=== PATIENT | female | born 1950 | race Caucasian/White ===

== ENCOUNTER → 2016-09-28 | Outpatient (REF) | payer MEDICAID ==
[2016-09-28 12:40] LABS: ALBUMIN 3.5 GM/DL (3.2-5.2); ALBUMIN/GLOBULIN RATIO 1.17 (1.00-1.93); ALKALINE PHOSPHATASE 99 U/L (45-117); ALT/SGPT 15 U/L (12-78); ANION GAP 7 MEQ/L (8-16); AST/SGOT 14 U/L (15-37); BILIRUBIN,TOTAL 0.7 MG/DL (0.2-1.0); BLOOD UREA NITROGEN 20 MG/DL (7-18); CALCIUM LEVEL 8.4 MG/DL (8.8-10.2); CARBON DIOXIDE LEVEL 31 MEQ/L (21-32); CHLORIDE LEVEL 106 MEQ/L (98-107); CHOLESTEROL LEVEL 193 MG/DL (<200); CREATININE FOR GFR 0.94 MG/DL (0.55-1.02); GLOMERULAR FILTRATION RATE > 60.0 (>45); GLUCOSE, FASTING 79 MG/DL (80-110); SODIUM LEVEL 144 MEQ/L (136-145); TOTAL PROTEIN 6.5 GM/DL (6.4-8.2); TRIGLYCERIDES LEVEL 140 MG/DL (<150)
== END | disposition home or self-care (01) ==
LOC: M SFHCPLAZ 09:08
PROVIDERS: ATTEND Family Medicine
DX: N18.3 Chronic kidney disease, stage 3 (moderate) (principal); E11.8 Type 2 diabetes mellitus with unspecified complications; N39.46 Mixed incontinence

== ENCOUNTER → 2016-10-05 | Outpatient (REF) | payer MEDICARE, MEDICAID ==
[~2016-10-05] MED LIST: ACTO30TA7 PO; ADV500INH INH; BIOT50005 SL; FLON1SPR; INCR1INH INH; K-TA10TA2 PO; LOPE2TAB3 PO; OMEP40CA2 PO; ROSU10TA2 PO; TRAZ50TA4 PO; VALA500T PO; VENL75TA2 PO; VITA-112 PO; XARE20TA PO; [UNRECOGNIZED DRUG - CODE] PO
== END | disposition home or self-care (01) ==
LOC: M SFHCPLAZ 11:51
PROVIDERS: ATTEND Family Medicine
DX: E11.8 Type 2 diabetes mellitus with unspecified complications (principal)

== ENCOUNTER → 2016-10-05 | Outpatient (CLI) | payer MEDICARE, MEDICAID ==
--- NOTE | 2016-10-09 14:15 | REPMRS ---
Patient History The patient states she has not had a clinical breast exam in over a year. Patient is postmenopausal. Family history of prostate cancer in brother. Digital Woman Screen Mammo: October 05, 2016 - Exam #: [id number] Bilateral CC and MLO view(s) were taken. Technologist: Clarissa Torres, Technologist Prior study comparison: 2013, bilateral mammogram, performed at [facility]. FINDINGS: The breast tissue is almost entirely fat. There has been no change in the appearance of the mammogram from the prior studies. There is no interval development of dominant mass, architectural distortion, or clustered microcalcification typical of malignancy. ASSESSMENT: BI-RADS/ACR category 1 mammogram. Negative. Recommendation Routine screening mammogram of both breasts in 1 year (for women over age 40). This mammogram was interpreted with the aid of an FDA-approved computer-aided dectection system. Electronically Signed By: Yosvayn Abraham MD 10/09/16 [id number]
== END | disposition home or self-care (01) ==
LOC: M WHC 12:30
PROVIDERS: ATTEND Family Medicine
DX: Z12.31 Encounter for screening mammogram for malignant neoplasm of breast (principal); Z78.0 Asymptomatic menopausal state; Z80.42 Family history of malignant neoplasm of prostate

== ENCOUNTER → 2016-11-06 | Outpatient (CLI) | payer MEDICARE, MEDICAID ==
[~2016-11-06] VITALS: Ht 171.4 cm; Wt 88.0 kg
[~2016-11-06] MED LIST changes: +NS 1,000 ML IV SCH; +PROPOFOL 200 MG/20 ML VIAL As Ordered ONE
--- NOTE | 2016-11-06 10:22 | ROOR ---
Patient Name: Leena Ballard Procedure Date: 11/06/2016 9:49 AM Date of : 1950 Age: 65 Room: [facility] Gender: Female Note Status: Finalized Procedure: Colonoscopy Indications: Screening for colorectal malignant neoplasm, High risk colon cancer surveillance: Personal history of colonic polyps Providers: Alex CINTRON MD Referring MD: Yumiko Booker MD Requesting Provider: Medicines: Monitored Anesthesia Care Complications: No immediate complications. Procedure: Pre-Anesthesia Assessment: - The heart rate, respiratory rate, oxygen saturations, blood pressure, adequacy of pulmonary ventilation, and response to care were monitored throughout the procedure. The Colonoscope was introduced through the anus and advanced to 5 cm into the ileum. The colonoscopy was performed without difficulty. The patient tolerated the procedure well. The quality of the bowel preparation was good. Findings: The perianal and digital rectal examinations were normal. Pertinent negatives include no anal lesion or abnormality was detected. The terminal ileum appeared normal. Five sessile polyps were found in the proximal ascending colon and cecum. The polyps were 4 to 12 mm in size. These polyps were removed with a piecemeal technique using a cold snare. Resection and retrieval were complete. Multiple medium-mouthed diverticula were found in the sigmoid colon. There was narrowing of the colon in association with the diverticular opening. There was evidence of diverticular spasm. Internal hemorrhoids were found during retroflexion. The hemorrhoids were moderate. The exam was otherwise without abnormality on direct and retroflexion views. (Exam: Complete, Prep: Good or Excellent.) Impression: - The examined portion of the ileum was normal. The perianal examination was normal. - Five 4 to 12 mm flat polyps in the proximal ascending colon and cecum, removed piecemeal using a cold snare. Resected and retrieved. - Mild to moderate diverticulosis in the sigmoid/descending colon. There was narrowing of the left colonand evidence of diverticular spasm. - Moderate Internal hemorrhoids. - The examination was otherwise normal on direct and retroflexion views. Recommendation: - If the pathology report reveals adenomatous tissue, then repeat the colonoscopy for surveillance in 3 years. Alex Cintron MD Alex CINTRON MD 11/06/2016 10:22:20 AM This report has been signed electronically. Number of Addenda: 0 Note Initiated On: 11/06/2016 9:49 AM Estimated Blood Loss: Estimated blood loss: none.
[2016-11-06 10:49] VITALS: BP 127/72
== END ==
LOC: M OPP 08:34
PROVIDERS: ATTEND Internal Medicine Gastroenterology
DX: Z12.11 Encounter for screening for malignant neoplasm of colon (principal); Z86.010 Personal history of colon polyps; D12.2 Benign neoplasm of ascending colon; D12.0 Benign neoplasm of cecum; K57.30 Diverticulosis of large intestine without perforation or abscess without bleeding; K64.8 Other hemorrhoids; I12.9 Hypertensive chronic kidney disease with stage 1 through stage 4 chronic kidney disease, or unspecified chronic kidney disease; N18.3 Chronic kidney disease, stage 3 (moderate); J45.909 Unspecified asthma, uncomplicated; F17.200 Nicotine dependence, unspecified, uncomplicated; E11.9 Type 2 diabetes mellitus without complications; K21.9 Gastro-esophageal reflux disease without esophagitis; K58.9 Irritable bowel syndrome, unspecified; G47.30 Sleep apnea, unspecified; H54.8 Legal blindness, as defined in USA; H35.30 Unspecified macular degeneration; H26.9 Unspecified cataract; Z86.718 Personal history of other venous thrombosis and embolism; Z98.84 Bariatric surgery status; Z96.659 Presence of unspecified artificial knee joint; Z96.619 Presence of unspecified artificial shoulder joint; Z86.73 Personal history of transient ischemic attack (TIA), and cerebral infarction without residual deficits; Z88.1 Allergy status to other antibiotic agents; Z88.0 Allergy status to penicillin; Z88.6 Allergy status to analgesic agent; Z88.8 Allergy status to other drugs, medicaments and biological substances; Z88.5 Allergy status to narcotic agent; Z79.02 Long term (current) use of antithrombotics/antiplatelets

== ENCOUNTER → 2016-11-13 | Outpatient (REF) | payer MEDICARE, MEDICAID ==
[~2016-11-13] MED LIST changes: -NS 1,000 ML IV SCH; -PROPOFOL 200 MG/20 ML VIAL As Ordered ONE
== END ==
LOC: M SMT 16:38
PROVIDERS: ATTEND Specialist
DX: N39.0 Urinary tract infection, site not specified (principal); R32 Unspecified urinary incontinence; N20.0 Calculus of kidney
CPT/HCPCS: 81001; 81002; 87086; G0463

== ENCOUNTER → 2017-02-04 | Outpatient (CLI) | payer MEDICARE, MEDICAID ==
--- NOTE | 2017-02-05 04:13 | REP ---
Clinical: Lung screening. History smoking. Comparison: none Technique: Axial low-dose noncontrast images from the thoracic inlet to the upper abdomen using lung screening technique. Findings: The lung fowler are well-aerated. No consolidation, significant nodule or mass lesion is appreciated. No pleural effusion/reaction or pneumothorax. Tracheobronchial tree is patent. Mediastinum demonstrates mild atherosclerotic changes of the coronary arteries without cardiomegaly. Impression: Lung-RADS category I. No nodule or suspicious abnormality. Management recommendations includes annual low-dose CT screening. Signed by Alton Blackburn MD 02/05/2017 04:04 A
== END ==
LOC: M RAD 10:42
PROVIDERS: ATTEND Family Medicine
DX: Z87.891 Personal history of nicotine dependence (principal)

== ENCOUNTER → 2017-04-25 | Outpatient (REF) | payer MEDICARE, MEDICAID ==
[~2017-04-25] MED LIST changes: +ACTO30TA15 PO; -ACTO30TA7 PO; +ASPI1TAB PO; +OXYB10TA PO; +TRAZ50TA11 PO; -TRAZ50TA4 PO; -VALA500T PO; +VALA500T2 PO; +[UNRECOGNIZED DRUG - CODE] PO; -[UNRECOGNIZED DRUG - CODE] PO
[2017-04-25 16:37] LABS: ANION GAP 8 MEQ/L (8-16); BLOOD UREA NITROGEN 11 MG/DL (7-18); CALCIUM LEVEL 8.2 MG/DL (8.8-10.2); CARBON DIOXIDE LEVEL 29 MEQ/L (21-32); CHLORIDE LEVEL 107 MEQ/L (98-107); CREATININE FOR GFR 0.88 MG/DL (0.55-1.02); GLOMERULAR FILTRATION RATE > 60.0 (>45); GLUCOSE, FASTING 113 MG/DL (80-110); POTASSIUM SERUM 3.7 MEQ/L (3.5-5.1); SODIUM LEVEL 144 MEQ/L (136-145)
== END ==
LOC: M SFHCPLAZ 13:49
PROVIDERS: ATTEND Family Medicine
DX: E11.8 Type 2 diabetes mellitus with unspecified complications (principal); N18.3 Chronic kidney disease, stage 3 (moderate)
CPT/HCPCS: 36415; 80048; 83036; G0463

== ENCOUNTER → 2017-07-08 | Outpatient (REF) | payer MEDICARE, MEDICAID ==
[2017-07-08 14:36] LABS: MEAN CORPUSCULAR HEMOGLOBIN 32.2 pg (27.0-33.0); MEAN CORPUSCULAR HGB CONC 32.4 g/dl (32.0-36.5); MEAN CORPUSCULAR VOLUME 99.3 fl (80.0-96.0); PLATELET COUNT, AUTOMATED 213 10^3/uL (150-450); RED CELL DISTRIBUTION WIDTH 12.7 % (11.5-14.5); WHITE BLOOD COUNT 8.5 10^3/uL (4.0-10.0)
[2017-07-08 14:52] LABS: ANION GAP 5 MEQ/L (8-16); BLOOD UREA NITROGEN 16 MG/DL (7-18); CALCIUM LEVEL 8.9 MG/DL (8.8-10.2); CARBON DIOXIDE LEVEL 31 MEQ/L (21-32); CHLORIDE LEVEL 105 MEQ/L (98-107); CREATININE FOR GFR 0.96 MG/DL (0.55-1.02); GLOMERULAR FILTRATION RATE > 60.0 (>45); GLUCOSE, FASTING 81 MG/DL (80-110); POTASSIUM SERUM 4.1 MEQ/L (3.5-5.1); SODIUM LEVEL 141 MEQ/L (136-145)
[2017-07-08 18:42] LABS: BACTERIA, URINE NONE SEEN; RBC, URINE NONE SEEN /hpf (0-3); SQUAMOUS EPITHELIAL CELL URINE SMALL AMOUNT /hpf (SMALL AMT); WBC, URINE 0-1 /hpf (0-3)
[2017-07-08 18:43] LABS: HYALINE CAST, URINE NONE SEEN /lpf (0-1); MICROSCOPIC EXAM PERFORMED
== END ==
LOC: M LABSMT 11:13
PROVIDERS: ATTEND Specialist
DX: Z01.818 Encounter for other preprocedural examination (principal); N39.46 Mixed incontinence
CPT/HCPCS: 80048; 81015; 85027; 87086; G0463

== ENCOUNTER 2017-07-12 08:36 | Day surgery (SDC) | payer MEDICARE, MEDICAID ==
[~2017-07-12] VITALS: Ht 165.1 cm; Wt 94.3 kg
[2017-07-12] MEDS ORDERED: LR 1,000 ML IV ONE (08:45)
[2017-07-12] MEDS ORDERED: PHENYLephrine HCL 500 MCG/5 ML (100MCG/ML) SYRINGE (J2370) As Ordered ONE (09:05)
[2017-07-12] MEDS ORDERED: PROPOFOL 200 MG/20 ML VIAL As Ordered ONE (09:51)
[2017-07-12] MEDS ORDERED: LIDOCAINE 2% INJ 100 MG/5 ML SDV (FOR ANES.) As Ordered ONE (09:51)
[2017-07-12] MEDS ORDERED: MIDAZOLAM INJ 2 MG/2 ML VIAL (J2250) As Ordered ONE (09:51)
[2017-07-12] MEDS ORDERED: fentaNYL 100 MCG/2 ML INJECTION (J3010) As Ordered ONE (09:52)
[2017-07-12] MEDS ORDERED: BOTULINUM INJ 100 UNITS (J0585) XX ONE (10:00)
[2017-07-12] MEDS ORDERED: BOTULINUM INJ 100 UNITS (J0585) As Ordered ONE (10:30)
[2017-07-12] MEDS: TRIMETHOPRIM/SULFAMETHOXAZOLE 160 MG in D5W 250 ML IV ONE ×2 (10:36→10:46)
[2017-07-12] MEDS ORDERED: fentaNYL 100 MCG/2 ML INJECTION (J3010) IV PRN (11:30)
[2017-07-12] MEDS ORDERED: METOCLOPRAMIDE INJ 10MG/2ML VIAL (J2765) IV PRN (11:30)
[2017-07-12] MEDS ORDERED: LR 1,000 ML IV SCH (11:30)
[2017-07-12] MEDS ORDERED: MEPERIDINE INJ 25 MG/ML VIAL (J2175) IV PRN (11:30)
[2017-07-12] MEDS ORDERED: PERCOCET 5MG/325MG TAB PO PRN (11:30)
[2017-07-12] MEDS ORDERED: ONDANSETRON 4MG/2ML VIAL (J2405) IV PRN (11:30)
[2017-07-12 12:30] VITALS: BP 182/74
--- NOTE | 2017-07-14 07:17 | RO ---
DATE OF PROCEDURE: 07/12/2017 PREOPERATIVE DIAGNOSIS: Mixed urinary incontinence with significant urinary urgency and urge incontinence causing her to wear diapers despite medical management. Urodynamic studies showed hypersensation. PROCEDURE: Cystoscopy, Hydrodistention, Bladder Biopsies, and Intravesicle Botox SURGEON: Sachi Catalan MD [employer] LAYER: Vineet ANESTHESIA: Monitored anesthesia care (MAC). After discussing all different options, alternatives, risks, and benefits, it was decided to bring the patient to the operating room for the above procedure. Informed consent was obtained in both verbal and written form. We particularly discussed the risks of urinary retention after intravesical Botox requiring either Castañeda catheterization or clean intermittent catheterization for up to a year after the procedure. The patient still wanted to continue. PROCEDURE: The patient was brought into the operating room, preoperative antibiotics had been given with Bactrim DS, and sequential compression devices were in place. MAC anesthesia was induced and the patient was then placed in the lithotomy position. Careful attention was paid that her pressure points were well padded and protected. Next, she was prepped and draped in the usual fashion. Next, a 21-Bulgarian cystoscope was inserted. The urethra was noted to be open without any evidence of lesions or strictures. Upon entering the bladder, both ureteral orifices were seen. There was no evidence of stones, erythematous patches, lesions, or other abnormalities. Using normal saline, the bladder was then distended under gravity drainage. After 700 mL, the water output was stopped and this was left distended for 10 minutes. Upon emptying the bladder, there was some hyperemia and a rare glomerulations lesion. There was trabeculation during the filling phase. At this point, 100 units of Botox had been mixed with 10 mL of injectable saline. Using an 3 mm needle, the Botox was injected into 10 different places around the bladder with 10 units of Botox each. Next, the water source was changed to sterile water and random bladder biopsies were taken. Any areas that were bleeding were then fulgurated. The patient's bladder was emptied and she was returned to the recovery room in stable condition. NIRMALA
== END 2017-07-12 12:45 | disposition home or self-care (01) ==
LOC: M SDC 08:36
PROVIDERS: ATTEND Specialist
DX: N39.46 Mixed incontinence (principal); N31.0 Uninhibited neuropathic bladder, not elsewhere classified; N32.81 Overactive bladder; I12.9 Hypertensive chronic kidney disease with stage 1 through stage 4 chronic kidney disease, or unspecified chronic kidney disease; E78.00 Pure hypercholesterolemia, unspecified; E11.311 Type 2 diabetes mellitus with unspecified diabetic retinopathy with macular edema; E11.40 Type 2 diabetes mellitus with diabetic neuropathy, unspecified; K57.32 Diverticulitis of large intestine without perforation or abscess without bleeding; K21.9 Gastro-esophageal reflux disease without esophagitis; A63.0 Anogenital (venereal) warts; M12.9 Arthropathy, unspecified; R29.898 Other symptoms and signs involving the musculoskeletal system; G43.909 Migraine, unspecified, not intractable, without status migrainosus; F41.0 Panic disorder [episodic paroxysmal anxiety]; F32.9 Major depressive disorder, single episode, unspecified; J45.909 Unspecified asthma, uncomplicated; J44.9 Chronic obstructive pulmonary disease, unspecified; R06.83 Snoring; R06.02 Shortness of breath; G47.33 Obstructive sleep apnea (adult) (pediatric); N18.3 Chronic kidney disease, stage 3 (moderate); E55.9 Vitamin D deficiency, unspecified; J30.9 Allergic rhinitis, unspecified; Z88.0 Allergy status to penicillin; Z88.1 Allergy status to other antibiotic agents; Z88.4 Allergy status to anesthetic agent; Z88.6 Allergy status to analgesic agent; Z88.8 Allergy status to other drugs, medicaments and biological substances; Z79.899 Other long term (current) drug therapy; Z79.82 Long term (current) use of aspirin; Z86.718 Personal history of other venous thrombosis and embolism; Z87.81 Personal history of (healed) traumatic fracture; Z86.73 Personal history of transient ischemic attack (TIA), and cerebral infarction without residual deficits; Z98.51 Tubal ligation status; Z96.651 Presence of right artificial knee joint; Z98.84 Bariatric surgery status; Z72.0 Tobacco use
CPT/HCPCS: 36415; 52204; 52287; 86850; 86900; 86901; 88305; J0585; J2250; J3010

== ENCOUNTER → 2017-11-05 | Outpatient (REF) | payer MEDICARE, MEDICAID ==
[2017-11-05 11:19] LABS: ANION GAP 8 MEQ/L (8-16); BLOOD UREA NITROGEN 13 MG/DL (7-18); CALCIUM LEVEL 8.5 MG/DL (8.8-10.2); CARBON DIOXIDE LEVEL 31 MEQ/L (21-32); CHLORIDE LEVEL 105 MEQ/L (98-107); CREATININE FOR GFR 0.89 MG/DL (0.55-1.30); GLOMERULAR FILTRATION RATE > 60.0 (>45); GLUCOSE, FASTING 102 MG/DL (70-100); POTASSIUM SERUM 3.8 MEQ/L (3.5-5.1); SODIUM LEVEL 144 MEQ/L (136-145)
[2017-11-05 11:29] LABS: ESTIMATED AVERAGE GLUCOSE 131 MG/DL (60-110); HEMOGLOBIN A1c 6.2 %
== END ==
LOC: M SFHCPLAZ 09:48
DX: E11.22 Type 2 diabetes mellitus with diabetic chronic kidney disease (principal); N18.3 Chronic kidney disease, stage 3 (moderate)
CPT/HCPCS: 83036

== ENCOUNTER → 2017-12-03 | Outpatient (CLI) | payer MEDICARE, MEDICAID | LOC: M WHC 10:06 | DX: Z12.31 Encounter for screening mammogram for malignant neoplasm of breast (principal); Z78.0 Asymptomatic menopausal state | CPT/HCPCS: 77067 ==

== ENCOUNTER → 2018-01-16 | Outpatient (REF) | payer MEDICARE, MEDICAID ==
[2018-01-16 19:46] LABS: BACTERIA, URINE AUTO 1+ (NEGATIVE); MUCUS, URINE SMALL (NEGATIVE); RBC, URINE AUTO 4 /HPF (0-3); SQUAMOUS EPITHELIAL CELL UR AU 1 /HPF (0-6); WBC, URINE AUTO 2 /HPF (0-3)
== END ==
LOC: M SMT 17:18
DX: N18.3 Chronic kidney disease, stage 3 (moderate) (principal); N39.46 Mixed incontinence
CPT/HCPCS: 81015

== ENCOUNTER → 2018-03-21 | Outpatient (CLI) | payer MEDICARE, MEDICAID | LOC: M WHC 09:44 | DX: M81.0 Age-related osteoporosis without current pathological fracture (principal) | CPT/HCPCS: 77080 ==

== ENCOUNTER → 2018-04-16 | Outpatient (REF) | payer MEDICARE, MEDICAID ==
[2018-04-16 12:15] LABS: VITAMIN B12 LEVEL 273 PG/ML (247-911)
[2018-04-16 12:42] LABS: ANION GAP 8 MEQ/L (8-16); BLOOD UREA NITROGEN 14 MG/DL (7-18); CALCIUM LEVEL 8.6 MG/DL (8.8-10.2); CARBON DIOXIDE LEVEL 30 MEQ/L (21-32); CHLORIDE LEVEL 105 MEQ/L (98-107); CREATININE FOR GFR 0.96 MG/DL (0.55-1.30); GLOMERULAR FILTRATION RATE > 60.0 (>45); GLUCOSE, FASTING 158 MG/DL (70-100); MAGNESIUM LEVEL 2.4 MG/DL (1.8-2.4); POTASSIUM SERUM 4.2 MEQ/L (3.5-5.1); SODIUM LEVEL 143 MEQ/L (136-145)
[2018-04-16 13:11] LABS: MALB URINE SIEMENS 18.2 MG/L; MAU/CREAT RATIO 13.8 MCG/MG (0.0-30.0)
[2018-04-16 13:49] LABS: ESTIMATED AVERAGE GLUCOSE 157 MG/DL (60-110); HEMOGLOBIN A1c 7.1 %
== END ==
LOC: M SFHCPLAZ 08:27
DX: E11.8 Type 2 diabetes mellitus with unspecified complications (principal); N18.3 Chronic kidney disease, stage 3 (moderate); R20.2 Paresthesia of skin
CPT/HCPCS: 83735

== ENCOUNTER → 2018-06-11 | Outpatient (CLI) | payer MEDICARE, MEDICAID, OTHER ==
[2018-06-11 17:10] LABS: ANION GAP 8 MEQ/L (8-16); BLOOD UREA NITROGEN 23 MG/DL (7-18); CALCIUM LEVEL 8.3 MG/DL (8.8-10.2); CARBON DIOXIDE LEVEL 29 MEQ/L (21-32); CHLORIDE LEVEL 105 MEQ/L (98-107); CREATININE FOR GFR 1.22 MG/DL (0.55-1.30); GLOMERULAR FILTRATION RATE 46.8 (>45); GLUCOSE, FASTING 183 MG/DL (70-100); NT-PRO BNP 701 PG/ML (<125); POTASSIUM SERUM 3.7 MEQ/L (3.5-5.1); SODIUM LEVEL 142 MEQ/L (136-145)
[2018-06-11 17:28] LABS: BASO % 0.3 % (0.0-1.0); EOS # 0.1 10^3/uL (0.0-0.50); EOS % 0.7 % (0.0-3.0); HEMATOCRIT 40.8 % (36.0-47.0); HEMOGLOBIN 13.4 g/dl (12.0-15.5); IMMATURE GRANULOCYTE % 1.1 % (0-3.0); LYMPH # 3.3 10^3/uL (1.5-4.5); LYMPH % 24.7 % (24.0-44.0); MEAN CORPUSCULAR HEMOGLOBIN 31.5 pg (27.0-33.0); MEAN CORPUSCULAR HGB CONC 32.8 g/dl (32.0-36.5); MONO # 0.7 10^3/uL (0.0-0.8); MONO % 4.9 % (0.0-5.0); NEUTROPHILS # 9.2 10^3/uL (1.8-7.7); NEUTROPHILS % 68.3 % (36.0-66.0); PLATELET COUNT, AUTOMATED 214 10^3/uL (150-450); RED BLOOD COUNT 4.25 10^6/uL (4.00-5.40); RED CELL DISTRIBUTION WIDTH 13.4 % (11.5-14.5); WHITE BLOOD COUNT 13.4 10^3/uL (4.0-10.0)
== END ==
LOC: M LAB 16:03
DX: Z01.818 Encounter for other preprocedural examination (principal); R05 Cough
CPT/HCPCS: 71046

== ENCOUNTER 2018-08-18 12:46 | Day surgery (SDC) | payer MEDICARE, MEDICAID ==
[~2018-08-18] VITALS: Ht 170.2 cm; Wt 108.9 kg
[~2018-08-18 12:46] MED LIST changes: +ALKATAB21 PO; +BIOT50005 PO; -BIOT50005 SL; +IMOD2TAB16 PO; +NS 1,000 ML IV ONE; -ROSU10TA2 PO; +ROSU10TA5 PO; +TRAZ-160 PO; -TRAZ50TA11 PO; -VALA500T2 PO; +VALA500T4 PO
[2018-08-18] MEDS ORDERED: LIDOCAINE 2% INJ 100 MG/5 ML SDV (FOR ANES.) As Ordered ONE (14:37)
[2018-08-18] MEDS ORDERED: fentaNYL 100 MCG/2 ML INJECTION (J3010) As Ordered ONE (14:37)
[2018-08-18] MEDS ORDERED: PROPOFOL 200 MG/20 ML VIAL As Ordered ONE (14:37)
--- NOTE | 2018-08-18 14:53 | ROOR ---
Patient Name: Leena Ballard Procedure Date: 08/18/2018 2:22 PM Date of : 1950 Age: 67 Room: [facility] Gender: Female Note Status: Finalized Procedure: Upper GI endoscopy Indications: Heartburn Providers: Alex CINTRON MD Referring MD: Yumiko Booker MD Requesting Provider: Medicines: Monitored Anesthesia Care Complications: No immediate complications. Procedure: Pre-Anesthesia Assessment: - The heart rate, respiratory rate, oxygen saturations, blood pressure, adequacy of pulmonary ventilation, and response to care were monitored throughout the procedure. The Endoscope was introduced through the mouth, and advanced to the third part of duodenum. The upper GI endoscopy was accomplished without difficulty. The patient tolerated the procedure well. Findings: The examined esophagus was normal. Evidence of a gastric bypass was found. (I suspect this was originally a vertical banded gastropexy, however the staple line fistulized and reopened into the remaining stomach). The exam of the stomach was otherwise normal. The examined duodenum was normal. Bilious fluid was found in the stomach. Impression: - Normal esophagus. 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 - Bilious gastric fluid. - Normal examined duodenum. - No specimens collected. Recommendation: - Continue present medications. - Consideration may be given to a trial on sucralfate for bilious gastric fluid/bile reflux. - Observe patient's clinical course. Alex Cintron MD Alex CINTRON MD 08/18/2018 2:53:11 PM This report has been signed electronically. Number of Addenda: 0 Note Initiated On: 08/18/2018 2:22 PM Estimated Blood Loss: Estimated blood loss: none.
[2018-08-18 15:05] VITALS: BP 200/91
== END 2018-08-18 15:27 | disposition home or self-care (01) ==
LOC: M OPP 12:46
PROVIDERS: ATTEND Internal Medicine Gastroenterology
DX: R12 Heartburn (principal); Z98.84 Bariatric surgery status
CPT/HCPCS: 43235; J3010

== ENCOUNTER → 2018-09-23 | Outpatient (REF) | payer MEDICARE, MEDICAID ==
[~2018-09-23] MED LIST changes: -NS 1,000 ML IV ONE; -VALA500T4 PO; +VALA500T5 PO
[2018-09-23 15:52] LABS: CALCIUM LEVEL 8.5 MG/DL (8.8-10.2); CREATININE FOR GFR 1.06 MG/DL (0.55-1.30); POTASSIUM SERUM 3.9 MEQ/L (3.5-5.1)
[2018-09-23 16:03] LABS: TOTAL 25(OH) VITAMIN D 34.3 NG/ML (30.0-100.0)
[2018-09-23 16:29] LABS: HEMOGLOBIN A1c 8.7 %
== END ==
LOC: M SFHCPLAZ 12:22
PROVIDERS: ATTEND Family Medicine
DX: E11.8 Type 2 diabetes mellitus with unspecified complications (principal); N18.3 Chronic kidney disease, stage 3 (moderate); M81.0 Age-related osteoporosis without current pathological fracture; N30.01 Acute cystitis with hematuria

== ENCOUNTER → 2018-10-10 | Outpatient (CLI) | payer MEDICARE, MEDICAID ==
--- NOTE | 2018-10-10 15:00 | REP ---
LOW-DOSE LUNG SCREENING CT: 10/10/2018. Comparison: CT 02/04/2017, chest x-ray 06/11/2018. Clinical history: Personal smoking history, history of nicotine dependence. Technique: Thin section low dose lung screening CT protocol performed. Only lung windows are presented per that protocol. Findings: There is a 2 mm calcified granuloma on image 43 in the right lower lobe superior segment. There is no pleural based mass, pleural thickening, noncalcified nodule or parenchymal mass. No apical scar or pneumothorax. I see no definite effusion. Mediastinal contour grossly unremarkable. Heart not enlarged. Impression: 1. Lung RADS category 1, negative. No nodule or suspicious abnormality. A calcified granuloma is seen in the superior segment of the right lower lobe, unchanged. Patients with this category of examination have less than 1% chance of malignancy at the time of the study. Recommend followup lung screening CT in 1 year. Electronically Signed by Sean Iglesias MD 10/10/2018 05:51 P
== END ==
LOC: M RAD 12:50
PROVIDERS: ATTEND Family Medicine
DX: Z12.2 Encounter for screening for malignant neoplasm of respiratory organs (principal); Z87.891 Personal history of nicotine dependence

== ENCOUNTER → 2018-10-23 | Outpatient (REF) | payer MEDICARE, MEDICAID | LOC: M SFHCPLAZ 08:36 | PROVIDERS: ATTEND Family Medicine | DX: E83.51 Hypocalcemia (principal) ==

== ENCOUNTER 2018-11-04 10:07 | Outpatient (CLI) | payer MEDICARE, MEDICAID ==
[~2018-11-04] VITALS: Ht 170.2 cm; Wt 109.3 kg
[2018-11-04 10:15] VITALS: BP 158/88
[2018-11-04] MEDS ORDERED: ZOLEDRONIC ACID 5 MG in APPROPRIATE DILUENT 1 EA IV ONE (10:30)
[2018-11-04 11:29] VITALS: BP 158/78
== END 2018-11-04 11:30 | disposition home or self-care (01) ==
LOC: M INFU 10:07
PROVIDERS: ATTEND Family Medicine
DX: M81.0 Age-related osteoporosis without current pathological fracture (principal); Z88.0 Allergy status to penicillin; Z88.1 Allergy status to other antibiotic agents; Z88.8 Allergy status to other drugs, medicaments and biological substances
CPT/HCPCS: 96365; J3489

== ENCOUNTER → 2018-12-02 | Outpatient (REF) | payer MEDICARE, MEDICAID ==
[~2018-12-02] MED LIST changes: -ASPI1TAB PO; +ASPI81TA26 PO
[2018-12-02 12:03] LABS: BLOOD UREA NITROGEN 12 MG/DL (7-18); CALCIUM LEVEL 8.9 MG/DL (8.8-10.2); CARBON DIOXIDE LEVEL 31 MEQ/L (21-32); CHLORIDE LEVEL 102 MEQ/L (98-107); CREATININE FOR GFR 0.97 MG/DL (0.55-1.30); GLOMERULAR FILTRATION RATE > 60.0 (>45); GLUCOSE, FASTING 227 MG/DL (70-100); POTASSIUM SERUM 3.6 MEQ/L (3.5-5.1); SODIUM LEVEL 140 MEQ/L (136-145)
== END ==
LOC: M SFHCPLAZ 08:03
PROVIDERS: ATTEND Family Medicine
DX: R51 Headache (principal)
CPT/HCPCS: 36415; 80048; G0463

== ENCOUNTER → 2019-01-09 | Outpatient (REF) | payer MEDICARE, MEDICAID ==
[2019-01-09 12:33] LABS: HEMOGLOBIN A1c 8.1 %
== END ==
LOC: M SFHCPLAZ 08:26
PROVIDERS: ATTEND Family Medicine
DX: E11.8 Type 2 diabetes mellitus with unspecified complications (principal)

== ENCOUNTER → 2019-04-10 | Outpatient (REF) | payer MEDICARE, MEDICAID ==
[~2019-04-10] MED LIST changes: -OXYB10TA PO; +OXYB10TA2 PO; -ROSU10TA5 PO; +ROSU10TA6 PO; -TRAZ-160 PO; +TRAZ-252 PO
[2019-04-10 12:39] LABS: HEMOGLOBIN A1c 7.3 %
[2019-04-10 12:46] LABS: CALCIUM LEVEL 9.3 MG/DL (8.8-10.2); CREATININE FOR GFR 1.01 MG/DL (0.55-1.30); POTASSIUM SERUM 4.5 MEQ/L (3.5-5.1)
[2019-04-10 13:20] LABS: MALB URINE SIEMENS 8.3 MG/L; MAU/CREAT RATIO 25.1 MCG/MG (0.0-30.0)
== END ==
LOC: M SFHCPLAZ 08:44
PROVIDERS: ATTEND Family Medicine
DX: E11.8 Type 2 diabetes mellitus with unspecified complications (principal); N18.3 Chronic kidney disease, stage 3 (moderate)

== ENCOUNTER → 2019-07-17 | Outpatient (REF) | payer MEDICARE, MEDICAID ==
[~2019-07-17] MED LIST changes: -OMEP40CA2 PO; +OMEP40CA97 PO
[2019-07-17 11:54] LABS: BLOOD UREA NITROGEN 14 MG/DL (7-18); CALCIUM LEVEL 8.5 MG/DL (8.8-10.2); CARBON DIOXIDE LEVEL 34 MEQ/L (21-32); CHLORIDE LEVEL 103 MEQ/L (98-107); CREATININE FOR GFR 0.91 MG/DL (0.55-1.30); GLOMERULAR FILTRATION RATE > 60.0 (>45); GLUCOSE, FASTING 112 MG/DL (70-100); POTASSIUM SERUM 3.6 MEQ/L (3.5-5.1); SODIUM LEVEL 143 MEQ/L (136-145)
[2019-07-17 12:10] LABS: HEMOGLOBIN A1c 6.8 %
== END ==
LOC: M SFHCPLAZ 08:36
PROVIDERS: ATTEND Family Medicine
DX: E11.8 Type 2 diabetes mellitus with unspecified complications (principal); N18.3 Chronic kidney disease, stage 3 (moderate)
CPT/HCPCS: 36415; 80048; 83036; G0463

== ENCOUNTER → 2019-08-10 | Outpatient (CLI) | payer MEDICARE, MEDICAID ==
--- NOTE | 2019-08-10 15:26 | REP ---
Bilateral lower extremity Duplex Doppler venous ultrasound: Real time compression and duplex Doppler interrogation of the bilateral lower extremity deep venous system is performed. Bilaterally, the common femoral, superficial femoral and popliteal veins are fully compressible with transducer pressure and demonstrate normal spontaneous and phasic flow, without evidence of deep venous thrombosis. Impression: No evidence of deep venous thrombosis of the bilateral lower extremity femoral popliteal venous system. Electronically Signed by David Gilliland MD 08/10/2019 03:17 P
== END ==
LOC: M RAD 13:41
PROVIDERS: ATTEND Physician Assistant
DX: I83.813 Varicose veins of bilateral lower extremities with pain (principal)

== ENCOUNTER → 2019-09-04 | Outpatient (CLI) | payer MEDICARE, MEDICAID ==
--- NOTE | 2019-09-04 14:10 | REPPI ---
Clinical: Change in bowel habits. Technique: Single supine view of the abdomen and pelvis. Findings: Bowel gas pattern is nonspecific. No obvious organomegaly. No significant abnormal calcifications. Skeletal structures demonstrate age-related changes. Impression: Nonspecific bowel gas pattern. Electronically Signed by Alton Blackburn MD 09/04/2019 02:01 P
== END ==
LOC: M PLALAB 13:38 → M PLAIMG 13:38
PROVIDERS: ATTEND Family Medicine
DX: R19.5 Other fecal abnormalities (principal)

== ENCOUNTER → 2019-09-21 | Outpatient (REF) | payer MEDICARE, MEDICAID ==
[~2019-09-21] MED LIST changes: -OXYB10TA2 PO; +OXYB10TA23 PO
[2019-09-21 17:44] LABS: APPEARANCE, URINE HAZY (CLEAR); BACTERIA, URINE AUTO NEGATIVE (NEGATIVE); BILIRUBIN, URINE AUTO NEGATIVE (NEGATIVE); BLOOD, URINE BLOOD NEGATIVE (NEGATIVE); COLOR, URINE YELLOW (YELLOW); GLUCOSE, URINE (UA) AUTO NEGATIVE (NEGATIVE); KETONE, URINE AUTO NEGATIVE (NEGATIVE); LEUKOCYTE ESTERASE, URINE AUTO 2+ (NEGATIVE); MUCUS, URINE SMALL (NEGATIVE); NITRITE, URINE AUTO NEGATIVE (NEGATIVE); PROTEIN, URINE AUTO NEGATIVE (NEGATIVE); RBC, URINE AUTO 2 /HPF (0-3); SPECIFIC GRAVITY URINE AUTO 1.005 (1.002-1.035); SQUAMOUS EPITHELIAL CELL UR AU 0 /HPF (0-6); UROBILINOGEN, URINE AUTO 0.2 mg/dL (0.0-2.0); WBC, URINE AUTO 13 /HPF (0-3)
== END ==
LOC: M LAB REF 16:27
PROVIDERS: ATTEND Nurse Practitioner Women's Health
DX: N39.41 Urge incontinence (principal)

== ENCOUNTER → 2020-01-19 | Outpatient (REF) | payer MEDICARE, MEDICAID ==
[~2020-01-19] MED LIST changes: +D31000TA2 PO; +LOPE2CAP PO; +TRUL0.5I SC; +[UNRECOGNIZED DRUG - OTHER] PO
[2020-01-19 12:14] LABS: HEMOGLOBIN A1c 6.4 %
[2020-01-19 13:02] LABS: CALCIUM LEVEL 9.5 MG/DL (8.8-10.2); CHOLESTEROL RISK RATIO 3.454 (<5); CREATININE FOR GFR 1.1 MG/DL (0.55-1.30); GLOMERULAR FILTRATION RATE 52.4 (>45); POTASSIUM SERUM 4.4 MEQ/L (3.5-5.1); TOTAL 25(OH) VITAMIN D 42.4 NG/ML (30.0-100.0)
== END ==
LOC: M SFHCPLAZ 08:41
PROVIDERS: ATTEND Family Medicine
DX: E11.8 Type 2 diabetes mellitus with unspecified complications (principal); E78.5 Hyperlipidemia, unspecified; N18.3 Chronic kidney disease, stage 3 (moderate); E55.9 Vitamin D deficiency, unspecified
CPT/HCPCS: 36415; 80048; 80061; 82306; 83036; G0463

== ENCOUNTER 2020-02-03 13:30 | Outpatient (CLI) | payer MEDICARE, MEDICAID ==
[~2020-02-03] VITALS: Ht 167.6 cm; Wt 97.7 kg
[~2020-02-03 13:30] MED LIST changes: -D31000TA2 PO; -LOPE2CAP PO; -TRUL0.5I SC; -[UNRECOGNIZED DRUG - OTHER] PO
[2020-02-03 13:40] VITALS: BP 144/63
[2020-02-03] MEDS ORDERED: ZOLEDRONIC ACID 5 MG in IV 1 EA IV ONE (13:45)
[2020-02-03 14:56] VITALS: BP 125/66
[2020-02-10] MEDS ORDERED: LOPE2CAP PO (13:25)
[2020-02-10] MEDS ORDERED: VITAD1000T PO (13:25)
[2020-02-10] MEDS ORDERED: [UNRECOGNIZED DRUG - OTHER] PO (13:25)
[2020-02-10] MEDS ORDERED: TRUL0.5I SC (13:31)
== END 2020-02-03 15:00 | disposition home or self-care (01) ==
LOC: M INFU 13:30
PROVIDERS: ATTEND Family Medicine
DX: M81.0 Age-related osteoporosis without current pathological fracture (principal)
CPT/HCPCS: 96365; J3489

== ENCOUNTER → 2020-02-09 | Outpatient (CLI) | payer MEDICARE, MEDICAID ==
[~2020-02-09] MED LIST changes: +LOPE2CAP PO; +TRUL0.5I SC; +VITAD1000T PO; +[UNRECOGNIZED DRUG - OTHER] PO
== END ==
LOC: M LABSMTC 12:03
PROVIDERS: ATTEND Anesthesiology
DX: Z03.818 Encounter for observation for suspected exposure to other biological agents ruled out (principal); Z11.59 Encounter for screening for other viral diseases
CPT/HCPCS: C9803; U0003

== ENCOUNTER 2020-02-12 07:09 | Day surgery (SDC) | payer MEDICARE, MEDICAID ==
[~2020-02-12] VITALS: Ht 167.6 cm; Wt 93.9 kg
[~2020-02-12 07:09] MED LIST changes: +NS 1,000 ML IV ONE
[2020-02-12] MEDS ORDERED: propofoL 200 MG/20 ML VIAL As Ordered ONE ×2 (08:57→09:15)
[2020-02-12] MEDS ORDERED: LIDOCAINE 2% 100MG/5ML SDV (FOR ANES.) As Ordered ONE (08:57)
--- NOTE | 2020-02-12 09:22 | ROOR ---
Patient Name: Leena Ballard Procedure Date: 02/12/2020 8:41 AM Date of : 1950 Age: 69 Room: [facility] Gender: Female Note Status: Finalized Procedure: Colonoscopy Indications: Change in bowel habits Providers: Alex CINTRON MD Referring MD: Yumiko Booker MD Requesting Provider: Medicines: Monitored Anesthesia Care Complications: No immediate complications. Procedure: Pre-Anesthesia Assessment: - The heart rate, respiratory rate, oxygen saturations, blood pressure, adequacy of pulmonary ventilation, and response to care were monitored throughout the procedure. The Colonoscope was introduced through the anus and advanced to the cecum, identified by appendiceal orifice and ileocecal valve. The colonoscopy was somewhat difficult due to multiple diverticula in the colon and unsatisfactory bowel prep. Successful completion of the procedure was aided by using manual pressure and lavage. The patient tolerated the procedure well. The quality of the bowel preparation was unsatisfactory, required extensive lavage. Overall prep remains subioptimal after lavage. Findings: The perianal and digital rectal examinations were normal. A 7 mm polyp was found in the cecum. The polyp was sessile. The polyp was removed with a cold snare. Resection and retrieval were complete. To prevent bleeding after the polypectomy, one hemostatic clip was successfully placed. There was no bleeding at the end of the procedure. Multiple small and large-mouthed diverticula were found in the sigmoid colon and descending colon. There was narrowing of the colon in association with the diverticular opening. Internal hemorrhoids were found during retroflexion. The hemorrhoids were moderate. Impression: - Preparation of the colon was suboptimal. - One 7 mm polyp in the cecum, removed with a cold snare. Resected and retrieved. Clip was placed. - Moderate to severe diverticulosis in the sigmoid colon and in the descending colon. There was spasm and narrowing of the colon in association with the diverticular opening. - Internal hemorrhoids. Recommendation: - Repeat colonoscopy in 1 year because the bowel preparation was suboptimal. - (Rec alternate colon preparation for next colonoscopy) - Continue present medications. Alex Cintron MD Alex CINTRON MD 02/12/2020 9:21:44 AM Electronically signed by Alex CINTRON MD Number of Addenda: 0 Note Initiated On: 02/12/2020 8:41 AM Estimated Blood Loss: Estimated blood loss: none.
[2020-02-12 09:40] VITALS: BP 144/70
[2020-02-12] MEDS ORDERED: ONDANSETRON 4MG/2ML VIAL As Ordered ONE (09:47)
[2020-02-12] MEDS ORDERED: ONDANSETRON 4MG/2ML VIAL IV ONE (10:00)
== END 2020-02-12 09:45 | disposition home or self-care (01) ==
LOC: M OPP 07:09
PROVIDERS: ATTEND Internal Medicine Gastroenterology
DX: R19.4 Change in bowel habit (principal); K63.5 Polyp of colon; K64.8 Other hemorrhoids; K57.30 Diverticulosis of large intestine without perforation or abscess without bleeding; E11.9 Type 2 diabetes mellitus without complications; Z79.899 Other long term (current) drug therapy; Z88.0 Allergy status to penicillin; Z88.1 Allergy status to other antibiotic agents; Z88.2 Allergy status to sulfonamides; Z87.891 Personal history of nicotine dependence
CPT/HCPCS: 45385; 88305; J2405

== ENCOUNTER → 2020-02-17 | Outpatient (CLI) | payer MEDICARE, MEDICAID ==
[~2020-02-17] MED LIST changes: -NS 1,000 ML IV ONE
--- NOTE | 2020-02-17 11:18 | REP ---
CT CHEST WITHOUT CONTRAST: LOW-DOSE SCREENING EXAM. HISTORY: Nicotine dependence. Comparison is made with prior studies dated October 10, 2018 and February 04, 2017. CT FINDINGS: There is a stable calcified tiny granuloma in the superior segment of the right lower lobe, unchanged. No new pulmonary nodule or mass lesion is visible. There is some linear fibrotic change in the lingula as before and in the right middle lobe, unchanged. There are sutures in the left upper quadrant of the abdomen post gastric bypass. Study is otherwise unremarkable. There is some vascular calcification. IMPRESSION: Stable Lung-RADS category 1 findings. Repeat screening study suggested in 1 year. Electronically Signed by Joe Abraham MD 02/17/2020 05:12 P
== END ==
LOC: M RAD 08:02
PROVIDERS: ATTEND Family Medicine
DX: Z12.2 Encounter for screening for malignant neoplasm of respiratory organs (principal); F17.211 Nicotine dependence, cigarettes, in remission

== ENCOUNTER → 2020-09-19 | Outpatient (REF) | payer MEDICARE, MEDICAID ==
[~2020-09-19] MED LIST changes: +D31000TA2 PO; -VITAD1000T PO
[2020-09-19 13:19] LABS: ALBUMIN 3.3 GM/DL (3.2-5.2); ALT/SGPT 14 U/L (12-78); BILIRUBIN,TOTAL 0.6 MG/DL (0.2-1.0); BLOOD UREA NITROGEN 7 MG/DL (7-18); CALCIUM LEVEL 8.8 MG/DL (8.8-10.2); CARBON DIOXIDE LEVEL 34 MEQ/L (21-32); CHLORIDE LEVEL 100 MEQ/L (98-107); CHOLESTEROL LEVEL 175 MG/DL (<200); CHOLESTEROL RISK RATIO 4.487 (<5); CREATININE FOR GFR 0.97 MG/DL (0.55-1.30); GLOMERULAR FILTRATION RATE > 60.0 (>45); GLUCOSE, FASTING 118 MG/DL (70-100); HDL CHOLESTEROL 39 MG/DL (>40); LDL CHOLESTEROL 104 MG/DL (<100); NON-HDL-C 136 MG/DL; POTASSIUM SERUM 3.5 MEQ/L (3.5-5.1); SODIUM LEVEL 141 MEQ/L (136-145); TOTAL PROTEIN 6.7 GM/DL (6.4-8.2); TRIGLYCERIDES LEVEL 160 MG/DL (<150)
[2020-09-19 14:36] LABS: HEMOGLOBIN A1c 6.2 %
== END ==
LOC: M SFHCADAM 09:16
PROVIDERS: ATTEND Physician Assistant
DX: N18.30 Chronic kidney disease, stage 3 unspecified (principal); E11.8 Type 2 diabetes mellitus with unspecified complications; E78.5 Hyperlipidemia, unspecified
CPT/HCPCS: 80053; 80061; 83036; G0463

== ENCOUNTER 2021-11-06 18:51 | Emergency (ER) | payer MEDICARE, OTHER ==
[~2021-11-06 18:51] MED LIST changes: -D31000TA2 PO; +OMEP40CA4 PO; -OMEP40CA97 PO; +VITA100093 PO
[2021-11-06] MEDS ORDERED: FLUORESCEIN OPHTH 1 MG STRIP OS ONE (20:25)
[2021-11-06 21:17] VITALS: BP 132/68
== END 2021-11-06 21:21 | disposition home or self-care (01) ==
LOC: M ED 18:51
DX: H57.12 Ocular pain, left eye (principal); Y04.8XXA Assault by other bodily force, initial encounter; Y92.810 Car as the place of occurrence of the external cause; Y93.9 Activity, unspecified; Y99.9 Unspecified external cause status; Z98.84 Bariatric surgery status; F17.200 Nicotine dependence, unspecified, uncomplicated; Z88.0 Allergy status to penicillin; Z88.1 Allergy status to other antibiotic agents; Z88.6 Allergy status to analgesic agent; Z88.8 Allergy status to other drugs, medicaments and biological substances; Z79.899 Other long term (current) drug therapy

== ENCOUNTER → 2022-01-19 | Outpatient (CLI) | payer MEDICARE, OTHER, MEDICAID ==
[2022-01-19 13:24] LABS: APPEARANCE, URINE HAZY (CLEAR); BACTERIA, URINE AUTO NEGATIVE (NEGATIVE); BILIRUBIN, URINE AUTO NEGATIVE (NEGATIVE); BLOOD, URINE BLOOD 1+ (NEGATIVE); COLOR, URINE YELLOW (YELLOW); GLUCOSE, URINE (UA) AUTO NEGATIVE (NEGATIVE); KETONE, URINE AUTO NEGATIVE (NEGATIVE); LEUKOCYTE ESTERASE, URINE AUTO TRACE (NEGATIVE); NITRITE, URINE AUTO NEGATIVE (NEGATIVE); PROTEIN, URINE AUTO NEGATIVE (NEGATIVE); RBC, URINE AUTO 3 /HPF (0-3); SPECIFIC GRAVITY URINE AUTO 1.009 (1.002-1.035); SQUAMOUS EPITHELIAL CELL UR AU 7 /HPF (0-6); UROBILINOGEN, URINE AUTO 0.2 mg/dL (0.0-2.0); WBC, URINE AUTO 3 /HPF (0-3)
[2022-01-19 13:34] LABS: BASO % 0.3 % (0.0-1.0); EOS % 0.2 % (0.0-3.0); HEMATOCRIT 44.7 % (36.0-47.0); LYMPH % 31.8 % (24.0-44.0); MEAN CORPUSCULAR HEMOGLOBIN 30.4 pg (27.0-33.0); MEAN CORPUSCULAR HGB CONC 33.6 g/dl (32.0-36.5); MEAN CORPUSCULAR VOLUME 90.5 fl (80.0-96.0); MONO # 0.5 10^3/uL (0.0-0.8); MONO % 5.5 % (2.0-8.0); NEUTROPHILS # 5.8 10^3/uL (1.5-8.5); NEUTROPHILS % 62.1 % (36.0-66.0); PLATELET COUNT, AUTOMATED 242 10^3/uL (150-450); RED BLOOD COUNT 4.94 10^6/uL (4.00-5.40); WHITE BLOOD COUNT 9.4 10^3/uL (4.0-10.0)
[2022-01-19 14:01] LABS: ALBUMIN 3.6 GM/DL (3.2-5.2); BILIRUBIN,TOTAL 0.7 MG/DL (0.2-1.0); CALCIUM LEVEL 9.8 MG/DL (8.8-10.2); CHOLESTEROL RISK RATIO 5.384 (<5); CREATININE FOR GFR 1.08 MG/DL (0.55-1.30); FREE T4 0.87 NG/DL (0.76-1.46); GLOMERULAR FILTRATION RATE 53.2 (>39); POTASSIUM SERUM 4.2 MEQ/L (3.5-5.1); THYROID STIMULATING HORMONE 3.77 uIU/ML (0.358-3.740); TOTAL PROTEIN 7.1 GM/DL (6.4-8.2)
[2022-01-19 14:11] LABS: CREATININE, URINE 69.2 MG/DL; MALB URINE SIEMENS 6.5 MG/L; MAU/CREAT RATIO 9.3 MCG/MG (0.0-30.0)
[2022-01-19 14:33] LABS: HEMOGLOBIN A1c 7.7 %
== END ==
LOC: M PLALAB 10:19
PROVIDERS: ATTEND Physician Assistant
DX: E11.8 Type 2 diabetes mellitus with unspecified complications (principal); E03.9 Hypothyroidism, unspecified; R30.0 Dysuria